=== PATIENT | male | born 1975 | race Caucasian/White ===

== ENCOUNTER 2024-05-13 08:47 | Day surgery (SDC) | payer BC ==
[2024-05-09 13:49] VITALS: BMI 30.9
[2024-05-13 10:53] LABS: Hematocrit 46.5 % (38.8-50.0); Hemoglobin 16.7 g/dL (13.5-17.5)
[2024-05-13 11:06] LABS: Anion Gap 11 mmol/L (10-20); BUN (Urea Nitrogen) 25 mg/dL (8.9-20.6); Calc. Creatinine Clearance 109 mL/min (70-130); Calcium 9.5 mg/dL (7.8-10.44); Carbon Dioxide 26 mmol/L (22-29); Chloride 106 mmol/L (98-107); Estimated GFR 72; Glucose 103 mg/dL (70-105); Potassium 4.8 mmol/L (3.5-5.1); Sodium 138 mmol/L (136-145)
[2024-05-13] MEDS ORDERED: SUGAMMADEX SODIUM 200 MG/2 ML VIAL ONE (11:20)
[2024-05-13] MEDS ORDERED: PROPOFOL 40 ML ONE (11:20)
[2024-05-13] MEDS ORDERED: Dexamethasone 20 MG/5 ML VIAL ONE (11:20)
[2024-05-13] MEDS ORDERED: Ondansetron PF 4 MG/2 ML Vial ONE ×2 (11:20→14:47)
[2024-05-13] MEDS ORDERED: fentaNYL 50 mcg/mL 1 mL Vial ONE ×5 (11:20→15:27)
[2024-05-13] MEDS ORDERED: Rocuronium Bromide 10 MG/ML (10ML VIAL) ONE (11:20)
[2024-05-13] MEDS ORDERED: Midazolam HCl 2 mg/2 ml Vial ONE (11:20)
[2024-05-13] MEDS ORDERED: Lidocaine 1% PF 5 ML VIAL ONE (12:19)
[2024-05-13] MEDS ORDERED: EPINEPHrine 1 MG/ML VIAL ONE (13:14)
[2024-05-13] MEDS ORDERED: Hydrocodone-Acetamin 15 ML UDCUP ONE (15:58)
== END 2024-05-13 17:00 | disposition home or self-care (01) ==
LOC: CSHSDC 08:47
PROVIDERS: ATTEND Otolaryngology Otolaryngic Allergy
PROC: 0CBM8ZX Excision of Pharynx, Via Natural or Artificial Opening Endoscopic, Diagnostic (ICD-10-PCS; principal; 2024-05-13)
DX: C09.9 Malignant neoplasm of tonsil, unspecified (principal); Z87.891 Personal history of nicotine dependence
CPT/HCPCS: 80048; 85014; 85018; 88305; 88331; 88332; J0171; J1100; J2250; J2405; J2704; J3010